=== PATIENT | male | born 1930 | race Caucasian/White ===

== ENCOUNTER 2018-07-22 04:54 | Emergency (ER) | payer MEDICARE, BC ==
--- NOTE | 2018-07-22 05:06 | Emergency Department Record ---
History of Present Illness - General Chief Complaint: Fall Injury Stated Complaint: FALL Time Seen by Provider: 07/22/18 05:01 Source: Patient, EMS Mode of Arrival: EMS Limitations: Other - History of Present Illness Initial Comments: 87 yo male presents to ED for evaluation following a trip and fall at [facility]. Patient denies pain other than to the right scalp, denies the use of anticoagulation medications. Patient has a history of moderate to severe dementia, history is limited. MD Complaint: Fall Onset/Timin -: Minutes(s) When Fall Occurred: 1 hour [employer]AX[employer]OUNT[employer] Fall Witnessed: Yes, by living facility staff Place Fall Occurred: Home Loss of Consciousness: None Prolonged Down Time?: No Symptoms Prior to Fall: None Location: Head - [place] Coma Scale Eye Response: (3) Open to voice Motor Response: (6) Obeys commands Verbal Response: (4) Confused conversation Jaime Total: 13 - Related Data Home Medications Medication Instructions Recorded Confirmed Last Taken Aspirin [Aspir-Low] 81 mg PO DAILY 07/22/18 07/22/18 Unknown Atorvastatin Calcium [Lipitor] 40 mg PO DAILY 07/22/18 07/22/18 Unknown Carbidopa/Levodopa [Carbidopa-Levo 1 each PO TID 07/22/18 07/22/18 Unknown 25-250 mg Odt] Cholecalciferol (Vitamin D3) 50,000 unit PO WEEKLY 07/22/18 07/22/18 Unknown [Decara] Cyanocobalamin (Vitamin B-12) 500 mcg SL DAILY 07/22/18 07/22/18 Unknown [Vitamin B-12] Meloxicam [Mobic] 15 mg PO DAILY 07/22/18 07/22/18 Unknown Multivitamin [Multi-Vitamin Daily] 1 each PO DAILY 07/22/18 07/22/18 Unknown Pyridoxine HCl (Vitamin B6) 50 mg PO DAILY 07/22/18 07/22/18 Unknown [Vitamin B-6] Allergies Allergy/AdvReac Type Severity Reaction Status Date / Time KORIN Inhibitors Allergy chronic Verified 07/22/18 05:18 cough Review of Systems ROS unobtainable: Due to mental status (Dementia) Physical Exam - General General Appearance: Alert, Cooperative, Mild distress Limitations: Other (Dementia) - Head Head exam: Other (Abrasion to the right scalp) Head exam detail: Abrasion. negative: Contusion, Ireland's sign, General tenderness, Hematoma, Laceration - Eye Eye exam: Normal appearance. negative: Conjunctival injection, Periorbital swelling, Periorbital tenderness, Scleral icterus - ENT Ear exam: negative: Auricular hematoma, Auricular trauma Nasal Exam: negative: Active bleeding, Discharge, Dried blood, Foreign body Mouth exam: negative: Drooling, Laceration, Muffled voice, Tongue elevation - Neck Neck exam: Other (Cervical collar in place on examination) - Respiratory Respiratory exam: Normal lung sounds bilaterally. negative: Rales, Respiratory distress, Rhonchi, Stridor - Cardiovascular Cardiovascular Exam: Regular rate, Normal rhythm, Normal heart sounds - GI/Abdominal GI/Abdominal exam: Soft. negative: Rebound, Rigid, Tenderness - Rectal Rectal exam: Deferred - exam: Deferred - Extremities Extremities exam: Normal inspection. negative: Pedal edema, Tenderness - Back Back exam: Denies: CVA tenderness (R), CVA tenderness (L) - Neurological Neurological exam: Alert. negative: Motor sensory deficit - Psychiatric Psychiatric exam: Normal affect, Normal mood - Skin Skin exam: Normal color. negative: Abrasion Type of lesion: negative: abrasion Course - Reevaluation(s) Reevaluation #1: 07/22/18 05:55 CT Head: No acute traumatic injury is identified on examination CT Cervical Spine: No definite fracture identified Patient and family member were updated on all results, cervical spine was cleared, and the patient appears stable for discharge at this time. Disposition Disposition: Discharge Clinical Impression: Scalp contusion Qualifiers: Encounter type: initial encounter Qualified Code(s): S00.03XA - Contusion of scalp, initial encounter Dementia Qualifiers: Dementia type: unspecified type Dementia behavioral disturbance: without behavioral disturbance Qualified Code(s): F03.90 - Unspecified dementia without behavioral disturbance Disposition: Home, Self-Care Condition: (2) Stable Instructions: Fall Prevention for Older Adults (ED) Additional Instructions: Return to ED if your symptoms worsen or if you have any concerns. Follow-up with your family doctor in 3-5 days as directed. Forms: Patient Portal Access Time of Disposition: 05:06 Quality - Quality Measures Quality Measures: N/A, Blunt Head Trauma (>2yr) - Jaime Coma Scale [place] Coma Scale: [place] Coma Scale Eye Response: (3) Open to voice Motor Response: (6) Obeys commands Verbal Response: (4) Confused conversation Jaime Total: 13 - Blunt Head Trauma - Adult Quality Measure: Measure #415: Utilization of CT for Minor Blunt Head Trauma ICD10 Codes Entered: Yes Was CT ordered: Yes Does Patient Have Any of the Following: No Exclusions Patient Presented Within 24 Hours of Injury: Yes Jaime Score: [address] for Minor Blunt Head Trauma: Not Eligible For Measure Additional Inclusion Criteria: More than 24hrs (OR) GCS not 15 (OR) CT not ordered. Indications For CT: Age 65 Years and Older Not Eligible Reason: GCS Score Less Than 15 - Blood Pressure Screening Does Patient Have Any of the Following: Active Dx of HTN Blood Pressure Classification: Hypertensive Reading Systolic Measurement: 182 Diastolic Measurement: 94 Screening for High Blood Pressure: Patient Exclusion, Hx of HTN [G9744]
--- NOTE | 2018-07-25 04:26 | CT SCAN REPORT ---
DATE: 07/22/2018. EXAM: HEAD CT HISTORY: Fall with abrasion to the left side of the forehead. TECHNIQUE: Noncontrast head CT. COMPARISON: None. FINDINGS: There is prominence of the ventricles and subarachnoid spaces compatible with atrophy. There is no mass or mass effect. No intra- or extra- axial hemorrhage. No CT evidence for large, acute territorial infarct. There is no fracture or acute osseous abnormality identified. The visualized sinuses are clear. The orbits are unremarkable. Areas of hypodensity are present in the white matter, most likely the result of chronic small-vessel ischemic change. IMPRESSION: 1. NO MASS, HEMORRHAGE, OR ACUTE INTRACRANIAL PROCESS. 2. ATROPHY AND CHRONIC SMALL-VESSEL ISCHEMIC CHANGES. JOB NUMBER: [id number] [facility], [place]
--- NOTE | 2018-07-25 04:35 | CT SCAN REPORT ---
DATE: 07/22/2018. EXAM: CT OF THE CERVICAL SPINE. HISTORY: Fall with neck pain. TECHNIQUE: Noncontrast CT of the cervical spine. COMPARISON: None. FINDINGS: There is no fracture or acute osseous abnormality. There is no destructive or erosive change. There is mild anterior subluxation of C4 on C5, most likely due to arthritic changes. Multilevel degenerative changes are present throughout the cervical spine with disc space narrowing at all levels. Disc space narrowing is most pronounced at C5-C6 and C6-C7. Degenerative endplate spurring and uncovertebral spurring present throughout the cervical spine. Facet arthritic changes are present at several levels and are most pronounced at C3-C4 and C4-C5. There is neuroforaminal narrowing at several levels in the cervical spine. There is no soft tissue swelling or soft tissue mass identified. There are thyroid nodules present bilaterally. Thyroid ultrasound could be performed for their further assessment. IMPRESSION: 1. NO FRACTURE OR ACUTE OSSEOUS ABNORMALITY. 2. MULTILEVEL DEGENERATIVE CHANGES THROUGHOUT THE CERVICAL SPINE WITH MULTILEVEL FORAMINAL NARROWING. 3. BILATERAL THYROID NODULES ARE PRESENT WHICH COULD BE FURTHER EVALUATED WITH ULTRASOUND. JOB NUMBER: [id number] [facility]
== END 2018-07-22 06:06 | disposition home or self-care (01) ==
LOC: ER 04:54
DX: S00.03XA Contusion of scalp, initial encounter (principal); S00.81XA Abrasion of other part of head, initial encounter; W06.XXXA Fall from bed, initial encounter; Y92.122 Bedroom in nursing home as the place of occurrence of the external cause; F03.90 Unspecified dementia, unspecified severity, without behavioral disturbance, psychotic disturbance, mood disturbance, and anxiety
CPT/HCPCS: 70450; 72125; 99283; 99284

== ENCOUNTER 2018-08-18 17:09 | Emergency (ER) | payer MEDICARE, BC ==
--- NOTE | 2018-08-18 17:46 | Emergency Department Record ---
History of Present Illness - General Chief Complaint: Hypertension Stated Complaint: HYPERTENSION Time Seen by Provider: 08/18/18 17:31 Source: Patient Mode of Arrival: Wheelchair Limitations: No limitations - History of Present Illness Initial Comments: 88 yo male presents from [facility] with family. The patient is on the memory unit. He has parkinson's. He had a non-traumatic fall early in the day per family. He landed on his buttocks. No head or neck injury, pain, or signs of injury. In the afternoon he was having shaking from his parkinson's. The staff took his blood pressure and it was elevated to 180/110's. The family was then contacted and they requested an ED evaluation. No chest pain, shortness of breath, cough, pain or new changes in personality. MD Complaint: Dizziness, Other (Elevated blood pressure) Onset/Timin -: Hour(s) Timing: Gradual onset Description: Other History of Same: Yes History of Trauma: No Severity: Mild Improves With: Nothing Worsens With: Nothing Associated Symptoms: Denies other symptoms - [place] Coma Scale Eye Response: (4) Open spontaneously Motor Response: (5) Localizes to pain Verbal Response: (4) Confused conversation [place] Total: 13 - Related Data Allergies Allergy/AdvReac Type Severity Reaction Status Date / Time KORIN Inhibitors Allergy chronic Verified 07/22/18 05:18 cough Travel Screening - Travel/Exposure Within Last 30 Days Have you traveled within the last 30 days?: No - Travel/Exposure Within Last Year Have you traveled outside the [place] in the last year?: No - Additonal Travel Details Have you been exposed to anyone with a communicable illness?: No - Travel Symptoms Symptom Screening: None Review of Systems Constitutional: Denies: Chills, Fever, Malaise, Weakness Eyes: Denies: Eye discharge, Eye pain, Photophobia, Vision change ENT: Denies: Congestion, Throat pain Respiratory: Denies: Cough, Dyspnea Cardiovascular: Denies: Chest pain, Palpitations, Syncope Endocrine: Denies: Fatigue Gastrointestinal: Denies: Abdominal pain, Diarrhea, Nausea, Vomiting Genitourinary: Denies: Dysuria, Frequency Musculoskeletal: Denies: Arthralgia, Back pain, Joint swelling, Myalgia Skin: Denies: Bruising, Change in color, Rash Neurological: Reports: Confusion (chronic dementia) Psychiatric: Denies: Anxiety Hematological/Lymphatic: Denies: Easy bleeding, Easy bruising Past Medical History - SOCIAL HISTORY Smoking Status: Never smoker Alcohol Use: None Drug Use: None - RESPIRATORY Hx Respiratory Disorders: Yes Hx Pneumonia: Yes (12/2016;05/2017;05/2018) Comment:: w/admissions for each@ [facility] - CARDIOVASCULAR Hx Cardio Disorders: Yes Hx Hypertension: Yes Comment:: high cholesterol; atherosclerotic heart disease - NEURO Hx Neuro Disorders: Yes Hx Parkinson's Disease: Yes - GI Hx GI Disorders: No - Hx Genitourinary Disorders: No - ENDOCRINE Hx Endocrine Disorders: No - MUSCULOSKELETAL Hx Musculoskeletal Disorders: Yes - PSYCH Hx Psych Problems: No - HEMATOLOGY/ONCOLOGY Hx Hematology/Oncology Disorders: No Family Medical History Any Significant Family History?: No Family Hx Comment (NOT TO BE USED IN PLACE OF ITEMS BELOW): unknown Hx Alcohol Use: Father, Brother/Sister Hx Resp Disorders: Brother/Sister Physical Exam - General General Appearance: Alert, Cooperative, No acute distress Limitations: No limitations - Head Head exam: Atraumatic, Normocephalic, Normal inspection Head exam detail: negative: Abrasion, Contusion, General tenderness, Hematoma, Laceration - Eye Eye exam: Normal appearance, PERRL. negative: Conjunctival injection, Periorbital swelling, Periorbital tenderness Pupils: negative: Normal accommodation, Irregular, Miosis, Unequal - ENT ENT exam: Normal exam, Mucous membranes moist Ear exam: Normal external inspection Nasal Exam: Normal inspection Mouth exam: Normal external inspection - Neck Neck exam: Normal inspection - Respiratory Respiratory exam: Normal lung sounds bilaterally. negative: Chest wall tenderness, Decreased breath sounds, Respiratory distress, Rhonchi, Stridor, Wheezes - Cardiovascular Cardiovascular Exam: Regular rate, Normal rhythm, Normal heart sounds Peripheral Pulses: 2+: Radial (R), Radial (L) - Rectal Rectal exam: Deferred - exam: Deferred - Extremities Extremities exam: Normal inspection, Full ROM. negative: Pedal edema, Tenderness - Back Back exam: Reports: Full ROM. Denies: CVA tenderness (R), CVA tenderness (L), Muscle spasm, Paraspinal tenderness, Tenderness, Vertebral tenderness - Neurological Neurological exam: Alert, CN II-XII intact, Oriented X3. negative: Altered - Psychiatric Psychiatric exam: Normal affect, Normal mood. negative: Agitated, Anxious - Skin Skin exam: Dry, Intact, Normal color, Warm. negative: Abrasion, Cyanosis, Diaphoretic, Erythema, Mottled Course Vital Signs 08/18/18 17:13 Temperature 97.9 F Pulse Rate 102 H Respiratory 18 Rate Blood Pressure 172/83 Pulse Ox 97 - Reevaluation(s) Reevaluation #1: The patient is asymptomatic at his baseline. His BP is 147/76 I discussed at length with the family that no intervention is acutely required for his BP He does not have any signs of trauma. The family does not believe he had any injury. We discussed signs and symptoms that would necessitate an immediate evaluation/ return to the ED 08/18/18 17:53 Disposition Disposition: Discharge Clinical Impression: Elevated blood pressure reading Disposition: Home, Self-Care Condition: (1) Good Instructions: Hypertension (ED) Additional Instructions: Call your doctor for rechecks of your blood pressure as needed Return to the ED if Mr Spivey has any concerns, pain, symptoms that differ from his normal health Forms: Patient Portal Access Time of Disposition: 17:53 Quality - Quality Measures Quality Measures: N/A - Blood Pressure Screening Does Patient Have Any of the Following: No Blood Pressure Classification: Pre-Hypertensive BP Reading Systolic Measurement: 172 Diastolic Measurement: 83 Screening for High Blood Pressure: < Pre-Hypertensive BP, F/U Documented > [ G8950] Pre-Hypertensive Follow-up Interventions: Referral to alternative/primary care provider.
== END 2018-08-18 18:12 | disposition home or self-care (01) ==
LOC: ER 17:09
DX: R03.0 Elevated blood-pressure reading, without diagnosis of hypertension (principal); G20 Parkinson's disease
CPT/HCPCS: 99282

== ENCOUNTER 2018-08-29 03:13 | Emergency (ER) | payer MEDICARE, BC ==
--- NOTE | 2018-08-29 03:20 | Emergency Department Record ---
History of Present Illness - General Chief Complaint: Fall Injury Stated Complaint: FALL Time Seen by Provider: 08/29/18 03:14 Source: EMS Mode of Arrival: EMS Limitations: No limitations - History of Present Illness Initial Comments: 88 yo male presents to ED for evaluation following a fall from bed this morning. Patient has a history of dementia, fell out of bed this morning resulting in injury to the head and neck. Patient denies pain on examination other than to the face and neck, does not take anticoagulation mediations at his baseline. Patient denies focal weakness on examination. MD Complaint: Fall Onset/Timin -: Minutes(s) Fall From: Out of bed When Fall Occurred: Just prior to arrival Place Fall Occurred: Home Loss of Consciousness: Unsure Prolonged Down Time?: No Symptoms Prior to Fall: None Location: Head, Face, Neck - [place] Coma Scale Eye Response: (4) Open spontaneously Motor Response: (6) Obeys commands Verbal Response: (5) Oriented Jaime Total: 15 - Related Data Allergies Allergy/AdvReac Type Severity Reaction Status Date / Time OKRIN Inhibitors Allergy chronic Verified 07/22/18 05:18 cough Review of Systems ROS unobtainable: Due to mental status (to dementia history), Other Past Medical History - SOCIAL HISTORY Smoking Status: Never smoker Drug Use: None - RESPIRATORY Hx Respiratory Disorders: Yes Hx Pneumonia: Yes (12/2016;05/2017;05/2018) Comment:: w/admissions for each@ [facility] - CARDIOVASCULAR Hx Cardio Disorders: Yes Hx Hypertension: Yes Comment:: high cholesterol; atherosclerotic heart disease - NEURO Hx Neuro Disorders: Yes Hx Parkinson's Disease: Yes - GI Hx GI Disorders: No - Hx Genitourinary Disorders: No - ENDOCRINE Hx Endocrine Disorders: No - MUSCULOSKELETAL Hx Musculoskeletal Disorders: Yes - PSYCH Hx Psych Problems: No - HEMATOLOGY/ONCOLOGY Hx Hematology/Oncology Disorders: No Family Medical History Family Hx Comment (NOT TO BE USED IN PLACE OF ITEMS BELOW): unknown Hx Alcohol Use: Father, Brother/Sister Hx Resp Disorders: Brother/Sister Physical Exam - General General Appearance: Alert, Oriented x3, Cooperative, Mild distress Limitations: Other (Dementia) - Head Head exam: Normocephalic Head exam detail: Abrasion. negative: Contusion, Ireland's sign, General tenderness, Hematoma, Laceration Image of Face/Head: 1 - Abrasion 2 - Abrasion - Eye Eye exam: Normal appearance. negative: Conjunctival injection, Periorbital swelling, Periorbital tenderness, Scleral icterus - ENT Ear exam: negative: Auricular hematoma, Auricular trauma Nasal Exam: negative: Active bleeding, Discharge, Dried blood, Foreign body Mouth exam: negative: Drooling, Laceration, Muffled voice, Tongue elevation - Neck Neck exam: Other (Cervical collar in place) - Respiratory Respiratory exam: Normal lung sounds bilaterally. negative: Rales, Respiratory distress, Rhonchi, Stridor - Cardiovascular Cardiovascular Exam: Regular rate, Normal rhythm, Normal heart sounds - GI/Abdominal GI/Abdominal exam: Soft. negative: Rebound, Rigid, Tenderness - Rectal Rectal exam: Deferred - exam: Deferred - Extremities Extremities exam: Normal inspection, Full ROM. negative: Tenderness - Back Back exam: Denies: CVA tenderness (R), CVA tenderness (L) - Neurological Neurological exam: Alert. negative: Motor sensory deficit - Psychiatric Psychiatric exam: Normal affect, Normal mood - Skin Skin exam: Abrasion, Normal color Type of lesion: abrasion Course - Reevaluation(s) Reevaluation #1: 08/29/18 04:30 CT Brain: STS no underlying skull fracture or hemorrhage CT Cervical Spine: Degenerative changes, no evidence acute fracture or subluxation. Patient's cervical spine was removed following clearance, patient and his daughter were updated on all results. Patient appears stable for discharge at this time. Disposition Disposition: Discharge Clinical Impression: Fall from bed, initial encounter, Abrasion Contusion of head Qualifiers: Encounter type: initial encounter Contusion of head detail: unspecified part of head Qualified Code(s): S00.93XA - Contusion of unspecified part of head, initial encounter Disposition: Home, Self-Care Condition: (2) Stable Instructions: Fall Prevention for Older Adults (ED) Additional Instructions: Return to ED if your symptoms worsen or if you have any concerns. Follow-up with your family doctor in 3-5 days as directed. Forms: Patient Portal Access Time of Disposition: 04:32 Quality - Quality Measures Quality Measures: N/A - Blood Pressure Screening Does Patient Have Any of the Following: Active Dx of HTN Blood Pressure Classification: Hypertensive Reading Systolic Measurement: 200 Diastolic Measurement: 100 Screening for High Blood Pressure: Patient Exclusion, Hx of HTN [G9744]
--- NOTE | 2018-08-30 19:24 | CT SCAN REPORT ---
EXAM: CT SCAN HEAD WO CONTRAST HISTORY: FALL, HEAD INJURY. TECHNIQUE: Noncontrast CT brain. COMPARISON: CT brain 07/22/2018. FINDINGS: Right frontal scalp soft tissue swelling. No midline shift, mass effect, or abnormal intra or extraaxial fluid collection. No cerebral edema or intracranial hemorrhage detected. Focal 7 mm extraaxial calcification in the anterior left frontal region, similar from prior and possibly a tiny meningioma or focal dural calcification. Generalized cerebral volume loss, similar from prior. Basal cisterns are not effaced. No displaced calvarial fracture. No significant paranasal sinus opacification. IMPRESSION: 1. RIGHT FRONTAL SCALP SOFT TISSUE SWELLING. 2. NO ACUTE INTRACRANIAL FINDINGS. JOB NUMBER: [id number] [facility]
--- NOTE | 2018-08-30 19:30 | CT SCAN REPORT ---
EXAM: CT SCAN CERVICAL SPINE WO CONTRAST HISTORY: FALL, PAIN. TECHNIQUE: Noncontrast CT cervical spine. COMPARISON: CT cervical spine 07/22/2018. FINDINGS: No acute fracture is seen. No dislocation. Grade 1 anterolisthesis at C3-4, C4-5, and C7-T1, likely related to degenerated facets. Multilevel disc space height loss. Suggestion of mild to moderate central spinal canal narrowing at multiple levels. Multilevel neural foraminal narrowing, most pronounced at C3-4 on the left, C4-5 on the left, and C5-6 on the left. Visualized upper lungs are clear. Incidental 9 mm low-attenuation left thyroid nodule. IMPRESSION: 1. NO ACUTE CERVICAL SPINE FRACTURE OR DISLOCATION IS DETECTED. 2. MULTILEVEL CERVICAL SPINE DEGENERATIVE FINDINGS WITH AREAS OF CENTRAL SPINAL CANAL AND NEURAL FORAMINAL NARROWING. JOB NUMBER: [id number] [facility]
== END 2018-08-29 04:50 | disposition home or self-care (01) ==
LOC: ER 03:13
DX: S00.93XA Contusion of unspecified part of head, initial encounter (principal); S00.81XA Abrasion of other part of head, initial encounter; W06.XXXA Fall from bed, initial encounter; Y92.122 Bedroom in nursing home as the place of occurrence of the external cause; F03.90 Unspecified dementia, unspecified severity, without behavioral disturbance, psychotic disturbance, mood disturbance, and anxiety; I10 Essential (primary) hypertension
CPT/HCPCS: 70450; 72125; 99283; 99284